=== PATIENT | female | born 1945 | race Caucasian/White ===

== ENCOUNTER 2016-05-13 14:16 | Outpatient (RCR) | payer MEDICARE ==
[~2016-05-13 14:16] MED LIST: ASPI-983 PO; ATOR80TA76 PO; Antivert; CLOP75TA28 PO; CLOP75TA69 PO; IBUP800T26 PO; METO-333 PO; MULT-1029 PO; OMEG-160 PO; PANT40TA3 PO; PED1TAB. PO; PRAV40TA PO; PRAV40TA2 PO; TICA90TA PO
[2016-06-29] MEDS ORDERED: MULT80TA PO (08:24)
[2016-06-30] MEDS ORDERED: SULF1TAB35 PO (08:24)
== END 2016-07-10 | disposition home or self-care (01) ==
LOC: CR 14:16
PROVIDERS: ATTEND Internal Medicine Cardiovascular Disease
DX: Z09 Encounter for follow-up examination after completed treatment for conditions other than malignant neoplasm (principal); I25.2 Old myocardial infarction
CPT/HCPCS: 93798

== ENCOUNTER → 2016-06-06 | Outpatient (CLI) | payer MEDICARE ==
[~2016-06-06] MED LIST changes: +CATHETER FLUSH 10 ML SYR IV PRN; +MULT80TA PO; +SULF1TAB35 PO
[2016-06-06 09:56] VITALS: BP 111/72
[2016-06-06 09:59] VITALS: BP 109/72
[2016-06-06 10:07] VITALS: BP 111/75
--- NOTE | 2016-06-07 09:49 | STRESS TEST ---
PROCEDURE PHYSICIAN: CINDY ROSALES EXERCISE MYOVIEW STRESS TEST REPORT DATE OF PROCEDURE: 06/06/2016 REFERRING PHYSICIAN: Janelle Beauchamp MD INDICATION: Coronary artery disease. Baseline heart rate is 60, baseline blood pressure: 111/71. Baseline EKG: Sinus rhythm with frequent, premature ventricular contractions. SUMMARY: The patient was injected with 10.73 mCi of technetium 99 Myoview and the resting images were obtained. Then she started exercising with a baseline heart rate, blood pressure and EKG mentioned above. At minute 6 and 35 seconds, she was injected with 32.3 mCi of technetium 99 Myoview. Continued to have frequent PVCs, at peak exercise level she exercise for total 7 minutes 35 seconds, achieving maximum heart rate of 140, which is 95% of maximum expected heart rate. With peak exercise level, EKG was showing no acute ischemic changes, no PVCs were noted. Then at 1 minute of recovery she started having PVCs again with a blood pressure at peak 148/73. The resting and stress images were reviewed and compared in the short axis, horizontal long axis, and vertical long axis views. Review of the images showed breast attenuation with decreased uptake at the mid to apical anterolateral wall and inferolateral wall, with mild reversibility. SSS is 8, SDS 4, TID value 0.98. On the gated images, the left ventricle appeared to be normal size with normal contractility. Calculated ejection fraction 60%. CONCLUSION: 1. Fair exercise tolerance, a total 7 minutes 35 seconds on standard Jiagr protocol 10.1 METs achieving 95% of maximum expected heart rate. 2. Frequent PVCs noted throughout the test, improved at the peak stress level then started back at one minute of recovery. 3. Nondiagnostic EKG changes with exercise. Returned to baseline during recovery. 4. Breast attenuation with reversible ischemia involving the mid to apical anterolateral and inferolateral wall. 5. Normal left ventricular size with normal contractility. Calculated ejection fraction 60% Job ID: [id number] Dictated Date: 06/07/2016 08:34:07 Gasateria Attendant Date: 06/07/2016 09:44:06 / rayshawn
== END ==
LOC: CARD 08:35
PROVIDERS: ATTEND Internal Medicine Cardiovascular Disease
DX: I25.10 Atherosclerotic heart disease of native coronary artery without angina pectoris (principal); E78.2 Mixed hyperlipidemia; Z72.0 Tobacco use; Z82.49 Family history of ischemic heart disease and other diseases of the circulatory system
CPT/HCPCS: 78452; 93017

== ENCOUNTER 2016-06-29 07:04 | Day surgery (SDC) | payer MEDICARE ==
[2016-06-29] VITALS (9 sets, daily range): BP systolic 83–143; BP diastolic 51–93
[~2016-06-29] VITALS: Ht 175.3 cm; Wt 77.1 kg
[~2016-06-29 07:04] MED LIST changes: -CATHETER FLUSH 10 ML SYR IV PRN; -MULT80TA PO; -SULF1TAB35 PO
[2016-06-29] MEDS ORDERED: HEParin (CATH LAB) 2,000 ML IV ONE (07:15)
[2016-06-29] MEDS ORDERED: LIDOCAINE 1% INJ 20 ML (XYLOCAINE) VIAL ONE (07:15)
[2016-06-29] MEDS ORDERED: NS IV 1000 ML 1,000 ML ONE (07:15)
[2016-06-29] MEDS ORDERED: NS IV 1000 ML 1,000 ML IV SCH ×2 (07:30→09:28)
[2016-06-29 07:46] LABS: BILIRUBIN,URINE NEGATIVE (NEGATIVE); KETONES,URINE NEGATIVE (NEGATIVE); LEUKOCYTE ESTERASE ,URINE 2+ (NEGATIVE); MEAN PLATELET VOLUME 11.1 FL (7.4-10.4); NITRITE,URINE NEGATIVE (NEGATIVE); PH,URINE 5 (5-9); PROTEIN,URINE 1+ (NEGATIVE); RED BLOOD COUNT 4.89 10^6/uL (4.35-5.85); UROBILINOGEN,URINE NORMAL (NORMAL)
[2016-06-29 07:58] LABS: INR 1.1 (0.8-1.4); PROTHROMBIN TIME PATIENT 13.4 SEC (12.2-14.7)
[2016-06-29 08:02] LABS: SQUAMOUS EPITHELIAL CELL,UR TNTC /HPF
[2016-06-29 08:07] LABS: ALANINE AMINOTRANSFERASE 20 U/L (0-55); ALBUMIN 4.2 G/DL (3.2-4.5); ANION GAP 6 MMOL/L (5-14); ASPARTATE AMINO TRANSFERASE 22 U/L (5-34); BILIRUBIN,TOTAL 0.7 MG/DL (0.1-1.0); BLOOD UREA NITROGEN 20 MG/DL (7-18); BUN/CREATININE RATIO 25; CALCIUM 8.9 MG/DL (8.5-10.1); CARBON DIOXIDE 28 MMOL/L (21-32); CHLORIDE 108 MMOL/L (98-107); CHOLESTEROL 173 MG/DL (< 200); DIRECT LDL 108 MG/DL (1-129); GFR ESTIMATED > 60; GLUCOSE 94 MG/DL (70-105); POTASSIUM 4.1 MMOL/L (3.6-5.0); SODIUM 142 MMOL/L (135-145); TOTAL PROTEIN 6.3 G/DL (6.4-8.2); TRIGLYCERIDES 107 MG/DL (<150); VLDL CHOLESTEROL 21 MG/DL (5-40)
--- NOTE | 2016-06-29 08:08 | Cardiac Procedure Note-CS/ASA ---
Pre-Procedure Note Pre-Op Procedure Note H&P Reviewed The H&P was reviewed, patient examined and no changes noted. Date H&P Reviewed: Jun 29, 2016 Time H&P Reviewed: 08:07 Conscious Sedation Pre-Proced Time Reviewed: 08:07 ASA Class: 3 Airway Mallampati Classification: ([place] appropriate class) I. II. III, IV Lungs Heart ASA score ASA 1: a normal healthy patient ASA 2: a patient with a mild systemic disease (mid diabetes, controlled hypertension, obesity x ASA 3: a patient with a severe systemic disease that limits activity (angina , COPD, prior Myocardial infarction) ASA 4: a patient with an incapacitating disease that is a constant threat to life (CHF, renal failure) ASA 5: a moribund patient not expected to survive 24 hrs. (ruptured aneurysm) ASA 6: a declared brain patient whose organs are being harvested. For emergent operations, add the letter E after the classification Grade 3 Sedation Plan: Analgesia, Amnesia, Plan communicated to team members, Discussed options with patient/fam, Discussed risks with patient/fam Note The patient is an appropriate candidate to undergo the planned procedure, sedation, and anesthesia. The patient immediately re-assessed prior to indication. CINDY ROSALES MD Jun 29, 2016 08:08
--- NOTE | 2016-06-29 08:16 | Diagnostic Imaging Report ---
Portable upright radiograph of the chest. INDICATION: Coronary artery disease. History of smoking. FINDINGS: The lungs are clear. The heart size is normal. No effusion or pneumothorax. The mediastinum and horace appear unremarkable. IMPRESSION: Unremarkable exam. Dictated by: Dictated on workstation # [id number]
[2016-06-29] MEDS ORDERED: MULT80TA PO (08:24)
[2016-06-29] MEDS ORDERED: MIDAZOLAM 5 MG/5 ML (VERSED) VIAL ONE (08:48)
[2016-06-29] MEDS ORDERED: fentaNYL INJECTION 100 MCG/2 ML AMP ONE (08:48)
[2016-06-29] MEDS ORDERED: HEParin 1000 UNIT/ML (10ML VIAL) FOR BOLUS ONE (09:14)
[2016-06-29] MEDS ORDERED: ADENOSINE 3 MG/1 ML (ADENOSCAN) 30ML VIAL IV ONE (09:14)
[2016-06-29] MEDS ORDERED: PATIENT MAY USE OWN MEDS, ALL PO SCH (09:30)
[2016-06-29] MEDS ORDERED: PANTOPRAZOLE 40 MG (PROTONIX) TAB PO SCH (21:00)
[2016-06-29] MEDS ORDERED: ATORVASTATIN 80 MG (LIPITOR) TABLET PO SCH (21:00)
[2016-06-29] MEDS: meTOprolol TARTRATE 25 MG (LOPRESSOR) TABLET PO SCH (21:01)
[2016-06-30] VITALS: BP 117/55
[2016-06-30 04:00] VITALS: BP 120/58
[2016-06-30 04:42] LABS: MEAN PLATELET VOLUME 11.7 FL (7.4-10.4); RED BLOOD COUNT 4.76 10^6/uL (4.35-5.85); RED CELL DISTRIBUTION WIDTH 15.1 % (10.0-14.5)
[2016-06-30 05:04] LABS: ANION GAP 9 MMOL/L (5-14); BLOOD UREA NITROGEN 16 MG/DL (7-18); BUN/CREATININE RATIO 23; CALCIUM 8.7 MG/DL (8.5-10.1); CARBON DIOXIDE 24 MMOL/L (21-32); CHLORIDE 108 MMOL/L (98-107); CREATININE SERUM 0.71 MG/DL (0.60-1.30); GFR ESTIMATED > 60; GLUCOSE 92 MG/DL (70-105); POTASSIUM 3.9 MMOL/L (3.6-5.0); SODIUM 141 MMOL/L (135-145)
[2016-06-30] MEDS ORDERED: MULTIVIT W/MINERALS TAB (THERAGRAN M) PO SCH (07:00)
[2016-06-30 08:00] VITALS: BP 95/54
[2016-06-30] MEDS ORDERED: SULF1TAB35 PO (08:24)
--- NOTE | 2016-06-30 08:24 | Cardiology Progress Note ---
Subjective Subjective/Events-last exam Patient sitting up in bed, no new complaints. Denies any CP or dyspnea. States ready to go home. Objective-Cardiology Exam Last Set of Vital Signs Vital Signs 06/30/16 06/30/16 08:00 09:40 Temp 95.6 Pulse 69 Resp 20 B/P 95/54 Pulse Ox 99 O2 Delivery Room Air Capillary Refill : Less Than 3 Seconds I&O Intake and Output 07/01/16 00:00 Intake Total 200 ml Output Total 400 ml Balance -200 ml Intake Oral 200 ml Output Urine Total 400 ml General: Alert, Oriented X3, Cooperative HEENT: Atraumatic, PERRLA Neck: Supple, No JVD, No Thyromegaly Lungs: Clear to Auscultation, Normal Air Movement Heart: Regular Rate, Normal S1, Normal S2, No Murmurs Abdomen: Normal Bowel Sounds, Soft, No Tenderness, No Hepatosplenomegaly, No Masses Extremities: No Clubbing, No Cyanosis, No Edema, Normal Pulses, No Tenderness/ Swelling Skin: No Rashes, No Breakdown, No Significant Lesion Neuro: Normal Gait, Normal Speech, Strength at 5/5 X4 Ext, Normal Tone, Sensation Intact Psych/Mental Status: Mental Status NL, Mood NL Results Lab A/P-Cardiology Admission Diagnosis CP CAD HLP UTI Assessment/Plan CP, nonspecific etiology, resolved. Continue current medications. Coronary Artery Disease, admitted in November 2015 with acute myocardial infarction , had total occlusion of the proximal circumflex artery, patient was unstable with cardiogenic shock, underwent emergency intervention to the proximal and mid circumflex artery with 2 overlapping stents using Promus per meter 2.512 mm proximal and 2.512 mm at the midportion, the proximal portion was expanded to 2.65 with excellent results. Had severe disease in a small to intermediate size right coronary artery that was treated later with primary stenting using 2.512 mm Promus per meter expanded to 2.5 mm with excellent results. Patient has 50 percent mid LAD stenosis, 50-60 percent mid to distal LAD stenosis. Most recent cardiac catheterization done yesterday revealed patent stents with otherwise nonobstructive disease. Continue current medications. Hyperlipidemia, maintained on Lipitor. History of tobaccoism, has stopped smoking after her myocardial infarction. Strong family history of coronary artery disease Status post cardiogenic shock after her myocardial infarction, improved Nonobstructive carotid artery stenosis-most recent carotid duplex done December 2015. Continue to monitor. Patient is maintained on PPI for reflux. UTI- I will start patient on DS. WILMER EUGENE Jun 30, 2016 08:24
[2016-06-30] MEDS: meTOprolol TARTRATE 25 MG (LOPRESSOR) TABLET PO SCH (08:49)
[2016-06-30] MEDS ORDERED: CLOPIDOGREL 75 MG (PLAVIX) TABLET PO SCH (09:00)
[2016-06-30] MEDS ORDERED: ASPIRIN E.C. 81 MG (ECOTRIN) TAB PO SCH (09:00)
[2016-06-30] MEDS ORDERED: OMEGA 3 (FISH OIL) 1000 MG CAP PO SCH (09:00)
[2016-06-30 09:40] VITALS: BP 95/54
--- NOTE | 2016-06-30 10:54 | DISCHARGE SUMMARY ---
PROCEDURE PHYSICIAN: CINDY ROSALES DATE OF PROCEDURE: 06/29/2016 REFERRING PHYSICIAN: Dr. Janelle Ram BRIEF HISTORY: Mrs. Cano is a 71-year-old lady with a history of coronary artery disease and myocardial infarction in October 2016. She underwent stent placement to the circumflex and right coronary artery had a borderline lesion in the LAD. She had an abnormal stress test, scheduled for left heart catheterization. PROCEDURE NOTE: After explaining the procedure to the patient, all pros and cons were explained. All questions were answered. The patient signed a consent, then she was placed on the cardiac catheterization laboratory. The right groin was prepped in a sterile fashion. Local anesthesia applied to right groin. 6-Slovenian sheath was placed in the right femoral artery. Combination of right and left Ihsan catheter were used to access the right and left coronary system. Multiple views were obtained. Pigtail catheter advanced to the left ventricular cavity. Pressure was measured. Pullback LV to aorta was done. At that point I decided to proceed with FFR to the LAD. The patient had a borderline lesion. The patient was given 5000 units of heparin. FL guide was advanced to the left coronary system. Radi wire was advanced to the LAD and placed distally. Baseline FFR was 0.90. She was started adenosine drip for 2 minutes. Blood pressure became borderline low. FFR at the end of the test was 0.84. At that time Radi wire was removed. Angiogram showed no complications. At that point, the guide was removed. The sheath was removed. Mynx device deployed. Hemostasis achieved. FINDINGS: HEMODYNAMICS: Please see separate sheet for hemodynamics. There is no significant gradient across the aortic valve. ANATOMY: 1. Left main coronary artery is bifurcating to left anterior descending and circumflex artery with no obstructive disease. 2. The left anterior descending artery is moderate in size. 50% stenosis in the mid LAD. FFR after adenosine was 0.84. Nonobstructive disease. 3. Left circumflex artery is moderate in size. Has 2 stents patent in the proximal and mid circumflex system with no obstructive disease. 4. Right coronary artery is moderate in size. Stent is patent in the midright coronary artery with no obstructive disease. 5. Normal left ventricular end-diastolic pressure. No ventriculogram was done. CONCLUSION: 1. 50% stenosis in the mid LAD. FFR is 0.84, nonobstructive disease. 2. Patent stents in the circumflex artery and right coronary artery. 3. Normal left ventricular end-diastolic pressure. DISCUSSION AND RECOMMENDATION: Medical therapy is recommended. No intervention is warranted at this point. FINAL DIAGNOSES: 1. Chest pain, nonspecific etiology. 2. Coronary artery disease. 3. Hypertension. 4. Hyperlipidemia Job ID: [id number] Dictated Date: 06/29/2016 09:34:03 Spinner Iron Date: 06/30/2016 10:52:29/rayshawn
--- NOTE | 2016-06-30 16:29 | Cardiology Progress Note ---
Subjective Subjective/Events-last exam patient was seen and evaluated bedside, SMITA uncomfortably, groin is healing well, denied any chest pain Review of Systems General: No Chills, No Night Sweats, No Fatigue, No Malaise, No Appetite, No Other HEENT: No Head Aches, No Visual Changes, No Eye Pain, No Ear Pain, No Dysphasia , No Sinus Congestion, No Post Nasal Drip, No Sore Throat, No Other Pulmonary: No Dyspnea, No Cough, No Pleuritic Chest Pain, No Other Cardiovascular: No: Chest Pain, Edema, Lt Headedness, Orthopnea, Other, Palpitations, Paroxysmal Noc. Dyspnea Objective-Cardiology Exam Last Set of Vital Signs Vital Signs 06/30/16 06/30/16 08:00 09:40 Temp 95.6 Pulse 69 Resp 20 B/P 95/54 Pulse Ox 99 O2 Delivery Room Air Capillary Refill : Less Than 3 Seconds General: Alert, Oriented X3, Cooperative HEENT: Atraumatic, PERRLA Neck: Supple, No JVD, No Thyromegaly Lungs: Clear to Auscultation, Normal Air Movement Heart: Regular Rate, Normal S1, Normal S2, No Murmurs Abdomen: Normal Bowel Sounds, Soft, No Tenderness, No Hepatosplenomegaly, No Masses Extremities: No Clubbing, No Cyanosis, No Edema, Normal Pulses, No Tenderness/ Swelling Skin: No Rashes, No Breakdown, No Significant Lesion Neuro: Normal Gait, Normal Speech, Strength at 5/5 X4 Ext, Normal Tone, Sensation Intact Psych/Mental Status: Mental Status NL, Mood NL Results Lab Laboratory Tests 06/30/16 04:13 A/P-Cardiology Admission Diagnosis CP CAD HTN Hyperlipidemia Assessment/Plan CP, nonspecific etiology, resolved. Continue current medications. Coronary Artery Disease, admitted in November 2015 with acute myocardial infarction , had total occlusion of the proximal circumflex artery, patient was unstable with cardiogenic shock, underwent emergency intervention to the proximal and mid circumflex artery with 2 overlapping stents using Promus per meter 2.512 mm proximal and 2.512 mm at the midportion, the proximal portion was expanded to 2.65 with excellent results. Had severe disease in a small to intermediate size right coronary artery that was treated later with primary stenting using 2.512 mm Promus per meter expanded to 2.5 mm with excellent results. Patient has 50 percent mid LAD stenosis, 50-60 percent mid to distal LAD stenosis. Most recent cardiac catheterization done yesterday revealed patent stents FFR across the LAD is 0.84. Conservative management, discharge today. Hyperlipidemia, maintained on Lipitor. History of tobaccoism, has stopped smoking after her myocardial infarction. Strong family history of coronary artery disease Status post cardiogenic shock after her myocardial infarction, improved Nonobstructive carotid artery stenosis-most recent carotid duplex done December 2015. Continue to monitor. Patient is maintained on PPI for reflux. UTI- I will start patient on Septra DS. CINDY ROSALES MD Jun 30, 2016 16:28
== END 2016-06-30 09:40 | disposition home or self-care (01) ==
LOC: CATH 07:04 → ICU 10:05 → 4TH 15:57 → CATH 06-30 09:40 → 4TH 06-30 10:22
PROVIDERS: ATTEND Internal Medicine Cardiovascular Disease
DX: R94.39 Abnormal result of other cardiovascular function study (principal); I25.10 Atherosclerotic heart disease of native coronary artery without angina pectoris; I25.2 Old myocardial infarction; R07.89 Other chest pain; E78.2 Mixed hyperlipidemia; I10 Essential (primary) hypertension; Z79.899 Other long term (current) drug therapy; Z87.891 Personal history of nicotine dependence; Z95.5 Presence of coronary angioplasty implant and graft
CPT/HCPCS: 36415; 71010; 80048; 80053; 80061; 81000; 85027; 85347; 85610; 85730; 87081; 93005; 93458; 93571

== ENCOUNTER → 2019-01-16 | Outpatient (CLI) | payer MEDICARE ==
[~2019-01-16] VITALS: Ht 175.3 cm; Wt 77.6 kg
[~2019-01-16] MED LIST changes: +CATHETER FLUSH 10 ML SYR IV PRN; +MULT80TA PO; +SULF1TAB35 PO
--- NOTE | 2019-01-16 16:18 | STRESS TEST ---
DATE OF SERVICE: 01/16/2019 EXERCISE MYOVIEW STRESS TEST REPORT REFERRING PHYSICIAN: Dr. Janelle Beauchamp. Baseline heart rate is 76. Baseline blood pressure 123/92. Baseline EKG is sinus rhythm with frequent PVCs. In summary, the patient was injected with 10.79 mCi of technetium-99 Myoview and the resting images were acquired. Then, the patient started exercising with a baseline heart rate, blood pressure and EKG mentioned above. Frequent PVCs were noted at the beginning of the test persisted throughout the test with ventricular trigeminy. The patient was able to exercise for 7 minutes 30 seconds on standard Jigar protocol. Peak blood pressure was 167/84. EKG was showing no ischemic changes. During recovery, heart rate and blood pressure returned to baseline. The patient continued to have frequent PVCs. The resting and stress images were reviewed and compared in the short axis, horizontal long axis, and vertical long axis views. Review of the images showed diaphragmatic attenuation affecting the quality of the images. There is decreased uptake at the basal to mid inferior wall, inferolateral and anterolateral wall with no significant reversibility. SSS is 10, SDS 2, TID value 10.08. On the gated images, the left ventricle is normal in size with mild hypokinesia, more pronounced at the inferior wall. Calculated ejection fraction 44%. IN CONCLUSION: 1. Fair exercise tolerance, a total of 7 minutes 30 seconds on standard Jigar protocol, total of 9.1 METs achieving 86% of maximum expected heart rate. 2. Frequent premature ventricular contractions and ventricular trigeminy persisted during exercise and during recovery. 3. Diaphragmatic attenuation with mild fixed defect at the basal to mid inferolateral and anterolateral wall with no significant reversibility. 4. Normal left ventricular size with mild diffuse left ventricular hypokinesia, more pronounced at the inferior wall. Calculated ejection fraction 44%. Job ID: [id number] DocumentID: [id number] Dictated Date: 01/16/2019 15:46:52 Senior Gis Analyst Date: 01/16/2019 16:16:55 Dictated By: CINDY ROSALES MD
== END ==
LOC: CARD 09:39
PROVIDERS: ATTEND Physician Assistant
DX: I08.0 Rheumatic disorders of both mitral and aortic valves (principal); I25.10 Atherosclerotic heart disease of native coronary artery without angina pectoris; I65.29 Occlusion and stenosis of unspecified carotid artery; E78.2 Mixed hyperlipidemia; Z82.49 Family history of ischemic heart disease and other diseases of the circulatory system
CPT/HCPCS: 78452; 93017; 93306

== ENCOUNTER → 2020-03-02 | Outpatient (CLI) | payer MEDICARE ==
[~2020-03-02] MED LIST changes: +ASPI-1238 PO; -ASPI-983 PO; -CATHETER FLUSH 10 ML SYR IV PRN; -PANT40TA3 PO; +PANT40TA52 PO
[2020-03-02 12:50] LABS: ALBUMIN 4.1 GM/DL (3.2-4.5); BILIRUBIN,TOTAL 0.7 MG/DL (0.1-1.0); CALCIUM 9.3 MG/DL (8.5-10.1); CREATININE SERUM 0.92 MG/DL (0.60-1.30); POTASSIUM 3.9 MMOL/L (3.6-5.0); TOTAL PROTEIN 6.6 GM/DL (6.4-8.2)
== END ==
LOC: CARD 12:24
PROVIDERS: ATTEND Internal Medicine Cardiovascular Disease
DX: I10 Essential (primary) hypertension (principal); I25.10 Atherosclerotic heart disease of native coronary artery without angina pectoris; I35.0 Nonrheumatic aortic (valve) stenosis; E78.2 Mixed hyperlipidemia; I65.23 Occlusion and stenosis of bilateral carotid arteries; Z82.49 Family history of ischemic heart disease and other diseases of the circulatory system
CPT/HCPCS: 36415; 80053; 80061; 93306

== ENCOUNTER 2021-11-04 15:11 | Emergency (ER) | payer MEDICARE ==
[~2021-11-04] VITALS: Ht 173 cm; Wt 59.0 kg
[~2021-11-04 15:11] MED LIST changes: -SULF1TAB35 PO; +SULF1TAB38 PO
[2021-11-04] MEDS ORDERED: LIDOCAINE 1% INJ 20 ML VIAL IJ STA (15:40)
[2021-11-04] MEDS ORDERED: TETANUS,DIPTH,PERTUSS P/F (BOOSTRIX) 0.5 ML VIAL IM ONE (15:45)
[2021-11-04] MEDS ORDERED: L.E.T. SOLUTION 3 ML SYR TOP ONE (15:45)
--- NOTE | 2021-11-04 16:06 | ED Fall/Injury ---
General Chief Complaint: Trauma-Non Activation Stated Complaint: FELL HIT HEAD Nursing Triage Note: PT TO ED IN WITH SISTER BY POV WITH C/O FALL. PT REPORTS SHE WAS SWEEPING HER FRONT PORCH AND FELL DOWN THE STEPS. PIT HIT HEAD AND UNSURE OF LOC. 2 CM LAC NOTED TO L FOREHEAD, SKIN TEAR TO L FA. PAIN IN L SHOULDER IS THE WORST AT THIS TIME. DENIES DIZZINESS, LIGHTHEADEDNESS, HERNÁNDEZ AT THIS TIME. Source: patient Exam Limitations: no limitations History of Present Illness Date Seen by Provider: Nov 04, 2021 Time Seen by Provider: 15:34 Initial Comments Here with sister who brought her in after fall at home. Apparently she was sweeping her porch when she fell down concrete steps. She did hit her head and believes that there was loss of consciousness. She does have a laceration to the left side of the forehead as well as skin tear to left arm. She is complaining of pain to the left upper arm as well as the left upper chest. She was nauseated after the event but that is improved now. Unknown last tetanus. Denies pain in her hips or legs and denies other injury. She does live alone but her grandson is staying with her through Monday and her sister lives right across the street. Her daughter lives in [place]. Occurred: just prior to arrival (Approximately 1 hour ago) Severity: moderate Injuries/Pain Location: head, neck, upper extremity, chest Context: lost balance Loss of Consciousness: unsure Modifying Factors: Improves With Immobilization; Worse With Movement Associated Symptoms (Fall): No Abdominal Pain; Chest Pain, Confusion, Headache, Nausea/Vomiting, Neck Pain; No Shortness of Air, No Slurred Speech, No Trouble Walking Allergies and Home Medications Allergies Coded Allergies: Penicillins (Unverified Allergy, Intermediate, RASH, 12/07/15) acetaminophen (Verified Allergy, Unknown, 12/05/15) codeine (Verified Allergy, Unknown, 12/05/15) hydrocodone (Verified Allergy, Unknown, 12/05/15) Patient Home Medication List Home Medication List Reviewed: Yes Aspirin (Aspirin EC) 81 Mg Tablet.dr, 81 MG PO DAILY, (Reported) Entered as Reported by: RICHELLE BRYAN on 02/15/16 1410 Atorvastatin Calcium (Atorvastatin Calcium) 80 Mg Tablet, 80 MG PO HS, (Reported) Entered as Reported by: RICHELLE BRYAN on 02/15/16 140 Clopidogrel Bisulfate (Clopidogrel) 75 Mg Tablet, 75 MG PO DAILY, (Reported) Entered as Reported by: RICHELLE BRYAN on 02/15/16 140 Metoprolol Tartrate (Metoprolol Tartrate) 25 Mg Tablet, 12.5 MG PO BID, (Reported) Entered as Reported by: RICHELLE BRYAN on 02/15/16 140 Multivit-Minerals/Folic Acid (Centrum Multigummies) 80 Mcg Tab.chew, 160 MCG PO DAILY, (Reported) Entered as Reported by: LOBITO WILSON on 06/29/16 0824 [place]-3/Dha/Epa/Fish Oil (Fish Oil 1,000 mg Softgel) 1 Each Capsule, 1,000 MG PO DAILY, (Reported) Entered as Reported by: RICHELLE BRYAN on 02/15/16 1410 Pantoprazole Sodium (Pantoprazole Sodium) 40 Mg Tablet.dr, 40 MG PO HS, (Reported) Entered as Reported by: RICHELLE BRYAN on 02/15/16 1402 Sulfamethoxazole/Trimethoprim (Bactrim Ds Tablet) 1 Each Tablet, 1 EACH PO BID Prescribed by: WILMER KIRBY on 06/30/16 0824 Review of Systems Review of Systems Constitutional: see HPI; No chills, No fever Eyes: Denies Pain, Denies Vision Changes Ears, Nose, Mouth, Throat: denies ear pain, denies nose pain, denies nose discharge, denies epistaxis Respiratory: No cough, No short of breath Cardiovascular: chest pain (Left upper chest wall); No palpitations Gastrointestinal: No abdominal pain; nausea; No vomiting Genitourinary: no symptoms reported Musculoskeletal: No back pain; joint pain, muscle pain, neck pain Skin: change in color, lesions (Skin tears left forearm and laceration left forehead) Psychiatric/Neurological: Headache; Denies Weakness All Other Systems Reviewed Negative Unless Noted: Yes Past Hsqspvz-Dxqxcg-Qeasmk Hx Patient Social History Tobacco Use?: No Use of E-Cig and/or Vaping dev: No Substance use?: No Immunizations Up To Date Tetanus Booster (TDap): Unknown Seasonal Allergies Seasonal Allergies: No Past Medical History Surgeries: Yes Cardiac, Coronary Stent, Tonsillectomy Respiratory: No Cardiac: Yes Coronary Artery Disease, Heart Attack, High Cholesterol Neurological: Yes Dementia, Headaches /Migraines 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 0.0oz. 77.221913yg; 19.00 BMI Method:Stated General Appearance: WD/WN, no apparent distress HEENT: PERRL/EOMI, pharynx normal, other (2 cm laceration left forehead lateral aspect above the episcopalian) Neck: non-tender, full range of motion, supple Cardiovascular: regular rate, rhythm, no murmur Respiratory: lungs clear, normal breath sounds, other (Tenderness to the area of the left upper chest lateral near axilla) Gastrointestinal: non tender, soft Back: normal inspection, no CVA tenderness, no vertebral tenderness Extremities: pelvis stable, other (Tenderness to area of left upper arm proximal humerus area) Neurologic/Psychiatric: alert, oriented x 3 Skin: warm/dry, other (Skin tear multiple abrasions to left forearm) Xavier Coma Score Best Eye Response: (4) Open Spontaneously Best Verbal Response: (5) Oriented Best Motor Response: (6) Obeys Commands Procedures/Interventions Wound Location: Scalp Other Wound Location Left upper forehead Wound Length (cm): 2 Wound's Depth, Shape: irregular, contused tissue Wound Explored: contaminated Irrigated w/ Saline (ccs): 100 Betadine Prep?: Yes Anesthesia: 1% Lidocaine Volume Anesthetic (ccs): 3 Wound Debrided: minimal Suture: Ethlion Suture Size: 5-0 Number of Sutures: 4 Layer Closure?: 1 Number Deep Layer Sutures: 0 Sterile Dressing Applied?: Yes Progress Anesthetized topically with LET. Wound then cleaned and local infiltration of 1% lidocaine. Cleaned with saline flush. Wound closed with simple interrupted sutures. Cover with antibiotic ointment and dressing. Tolerated procedure well with no complications. Closure done by DB Kent. Post closure wound evaluated by me and noted excellent approximation. Progress/Results/Core Measures Results/Orders My Orders Orders - FERNANDEZ TINEO MD Ct Chest Wo (6/9/22 15:40) Ct Head/Cervical Spine Wo (11/04/21 15:40) Humerus, Left, 2 Views (11/04/21 15:40) Dipht,Pertuss(Acell),Tet Adult (Boostrix (11/04/21 15:45) Let Solution (Let Solution) (11/04/21 15:45) Lidocaine 1% Inj 20 Ml (Xylocaine 1% Inj (11/04/21 15:40) Medications Given in ED Current Medications Medications Dose Ordered Sig/Emily Route Start Time Stop Time Status Last Admin Dose Admin Diphtheria/ Tetanus/Acell Pertussis 0.5 ml ONCE ONCE IM 11/04/21 15:45 11/04/21 15:46 DC 11/04/21 16:18 0.5 ML Tetracaine/ Epinephrine/ Lidocaine 3 ml ONCE ONCE TOP 11/04/21 15:45 11/04/21 15:46 DC 11/04/21 16:43 3 ML Vital Signs/I&O 11/04/21 15:20 Temp 36.5 Pulse 58 Resp 14 B/P (MAP) 145/72 (96) Pulse Ox 99 O2 Delivery Room Air Blood Pressure Mean: 96 Progress Progress Note : Progress Note Seen and evaluated. CT head, neck and chest ordered. X-ray left humerus ordered. We will apply LET to wound on the forehead. Nursing to clean and cover skin tear to left forearm. She has declined pain medicine. Tetanus to be updated. Monitor patient. 1625: Wound cleaning ongoing. We will close wound to forehead. Nursing to dress wounds to forearm. Sling applied to left arm due to proximal humerus fracture at tip. See x-ray results for details. Findings discussed with patient and family. Discharged home with return precautions. Patient and family verbalized understanding instructions and agreement with plan. Grandson will stay with the patient tonight. Diagnostic Imaging Diagonstic Imaging: Xray Plain Films/CT/US/NM/MRI: other Comments [facility] [place], [place] NAME: RHONA CLARK [facility] REC#: [id number] PT STATUS: REG ER : 1945 PHYSICIAN: FERNANDEZ TINEO MD ADMIT DATE: 11/04/21/ER Signed Date of Exam:11/04/21 HUMERUS, LEFT, 2 VIEWS INDICATION: Status post fall with left humeral pain. AP and lateral views of the left humerus are obtained. There is no prior study for comparison. FINDINGS: There appears to be a nondisplaced fracture of the posterolateral portion of the humeral head. Mid and distal humeral shaft are intact. The glenohumeral joint and AC joint appear in good alignment. IMPRESSION: Nondisplaced fracture of the posterolateral portion of the humeral head. No other abnormalities. Dictated by: Dictated on workstation # [id number] Dict: 11/04/21 1606 Trans: 11/04/21 1618 [id number] Interpreted by: MAGALI ARNOLD MD Electronically signed by: MAGALI ARNOLD MD 11/04/21 1618 Diagonstic Imaging: CT Plain Films/CT/US/NM/MRI: c-spine, head Comments [facility] [place], [place] NAME: RHONA CLARK [facility] REC#: [id number] PT STATUS: REG ER : 1945 PHYSICIAN: FERNANDEZ TINEO MD ADMIT DATE: 11/04/21/ER Draft Date of Exam:11/04/21 CT HEAD/CERVICAL SPINE WO EXAMINATION: CT head and CT cervical spine without contrast. TECHNIQUE: Multiple contiguous axial images were obtained through the brain and cervical spine without the use of intravenous contrast. Sagittal and coronal reformations through the cervical spine were then performed. All CT scans use one or more of the following dose optimizing techniques: Automated exposure control, MA and/or KvP adjustment based on patient size and exam type or iterative reconstruction. HISTORY: Head and neck pain after injury. COMPARISON: 02/15/2016. FINDINGS: HEAD: Mild diffuse cerebral volume loss with proportional enlargement of the ventricles and sulci. Mild hypodensities throughout the supratentorial white matter of both cerebral hemispheres. No acute intracranial hemorrhage or abnormal extra-axial fluid collections are present. No hyperdense vessel. The calvarium is intact. The mastoid air cells are clear. The visualized paranasal sinuses are clear. Orbits are normal. Left frontal scalp soft tissue injury. C-SPINE: There is straightening of the normal cervical lordosis. Vertebral body heights are maintained. No acute fracture, dislocation, or destructive osseous process. There is multilevel facet hypertrophy without perched facets. There is multilevel cervical spondylosis. The paraspinous soft tissues are normal. The visualized thyroid gland is normal. The visualized lung apices are normal. IMPRESSION: 1. No acute intracranial abnormality. Chronic microangiopathy and volume loss. 2. Degenerative changes of the cervical spine without acute osseous abnormality. 3. Left frontal scalp soft tissue injury without underlying calvarial fracture. Dictated on workstation # [id number] Dict: 11/04/21 1555 Trans: 11/04/21 1605 [id number] Interpreted by: AGUSTÍN COHEN DO Electronically signed by: Maurinsmartha Imaging: CT Plain Films/CT/US/NM/MRI: chest Comments [facility], [place] NAME: RHONA CLARK [facility] REC#: [id number] PT STATUS: REG ER : 1945 PHYSICIAN: FERNANDEZ TINEO MD ADMIT DATE: 11/04/21/ER Draft Date of Exam:11/04/21 CT CHEST WO EXAMINATION: CT chest without contrast. TECHNIQUE: Multiple contiguous axial images were obtained through the chest without the use of intravenous contrast. All CT scans use one or more of the following dose optimizing techniques: Automated exposure control, MA and/or KvP adjustment based on patient size and exam type or iterative reconstruction. HISTORY: Chest pain after fall. COMPARISON: None available. FINDINGS: Thyroid: The thyroid is normal. Mediastinum: Heart size is normal without significant pericardial effusion. Calcifications of the aorta and coronary vessels. Thoracic aorta is normal in caliber. No suspicious lymphadenopathy. Lungs and airways: The lungs are clear without consolidation, pleural effusion, or pneumothorax. The airways are normal. Upper abdomen: The subphrenic structures are normal. Musculoskeletal: No acute fracture is seen. IMPRESSION: 1. No acute abnormality in the chest. No acute fracture. Dictated on workstation # [id number] Dict: 11/04/21 1603 Trans: 11/04/21 1611 [id number] Interpreted by: NOEL,AGUSTÍN C DO Electronically signed by: Departure Impression Primary Impression: Closed head injury Qualified Codes: S09.90XA - Unspecified injury of head, initial encounter Additional Impressions: Laceration of forehead without complication Qualified Codes: S01.81XA - Laceration without foreign body of other part of head, initial encounter Skin tear of left forearm without complication Qualified Codes: S51.812A - Laceration without foreign body of left forearm, initial encounter Multiple abrasions Closed fracture of left proximal humerus Qualified Codes: S42.295A - Other nondisplaced fracture of upper end of left humerus, initial encounter for closed fracture Disposition: HOME, SELF-CARE Condition: Stable Departure-Patient Inst. Decision time for Depature: 16:28 Referrals: ADENIKE COPPOLA MD, NICHOLE M MD (PCP) Primary Care Physician OLGA CHAVEZ MD, MICHAEL P MD Patient Instructions: Laceration Repair With Stitches (DC), Skin Abrasions (DC), Concussion, Adult (DC), Upper Arm Fracture Add. Discharge Instructions: All discharge instructions reviewed with patient and/or family. Voiced understanding. Sutures out in 5 to 7 days. You may return to the emergency department for suture removal. Use antibiotic ointment and dressing over wound to forehead. You may also replace dressing as needed to left forearm by covering with antibiotic ointment and dressing. Return for worse pain, vomiting, weakness, vision or balance problems, breathing problems or other concerns as needed. Use sling until directed otherwise by orthopedic physician. Call and make appointment with one of the orthopedic physicians listed or of your choosing for recheck and further evaluation of small fracture of area on left shoulder. You may use Tylenol/acetaminophen 1000 mg every 6-8 hours as needed for pain. FERNANDEZ TINEO MD Nov 04, 2021 16:06
--- NOTE | 2021-11-04 16:10 | Diagnostic Imaging Report ---
INDICATION: Status post fall with left humeral pain. AP and lateral views of the left humerus are obtained. There is no prior study for comparison. FINDINGS: There appears to be a nondisplaced fracture of the posterolateral portion of the humeral head. Mid and distal humeral shaft are intact. The glenohumeral joint and AC joint appear in good alignment. IMPRESSION: Nondisplaced fracture of the posterolateral portion of the humeral head. No other abnormalities. Dictated by: Dictated on workstation # [id number]
--- NOTE | 2021-11-04 16:11 | Diagnostic Imaging Report ---
EXAMINATION: CT chest without contrast. TECHNIQUE: Multiple contiguous axial images were obtained through the chest without the use of intravenous contrast. All CT scans use one or more of the following dose optimizing techniques: Automated exposure control, MA and/or KvP adjustment based on patient size and exam type or iterative reconstruction. HISTORY: Chest pain after fall. COMPARISON: None available. FINDINGS: Thyroid: The thyroid is normal. Mediastinum: Heart size is normal without significant pericardial effusion. Calcifications of the aorta and coronary vessels. Thoracic aorta is normal in caliber. No suspicious lymphadenopathy. Lungs and airways: The lungs are clear without consolidation, pleural effusion, or pneumothorax. The airways are normal. Upper abdomen: The subphrenic structures are normal. Musculoskeletal: No acute fracture is seen. IMPRESSION: 1. No acute abnormality in the chest. No acute fracture. Dictated by: Dictated on workstation # [id number]
[2021-11-04 17:11] VITALS: BP 146/59
== END 2021-11-04 17:08 | disposition home or self-care (01) ==
LOC: EDUNIT# 15:11 → ER 15:14
DX: S42.295A Other nondisplaced fracture of upper end of left humerus, initial encounter for closed fracture (principal); S09.90XA Unspecified injury of head, initial encounter; S01.01XA Laceration without foreign body of scalp, initial encounter; S51.812A Laceration without foreign body of left forearm, initial encounter; R07.89 Other chest pain; Z23 Encounter for immunization; W10.8XXA Fall (on) (from) other stairs and steps, initial encounter; Y92.008 Other place in unspecified non-institutional (private) residence as the place of occurrence of the external cause
CPT/HCPCS: 12011; 70450; 71250; 72125; 73060; 99283; A4565; 90715

== ENCOUNTER → 2021-11-10 | Emergency (ER) | payer MEDICARE ==
[~2021-11-10] VITALS: Ht 172 cm; Wt 58.9 kg
[2021-11-10 10:53] VITALS: BP 146/85
== END ==
LOC: EDUNIT# 10:45 → ER 10:46
DX: Z48.02 Encounter for removal of sutures (principal)

== ENCOUNTER → 2022-05-24 | Outpatient (CLI) | payer MEDICARE ==
[~2022-05-24] MED LIST changes: +CLOP-31 PO; -CLOP75TA69 PO
== END ==
LOC: CARD 10:39
PROVIDERS: ATTEND Internal Medicine Cardiovascular Disease
DX: I11.9 Hypertensive heart disease without heart failure (principal); I35.2 Nonrheumatic aortic (valve) stenosis with insufficiency
CPT/HCPCS: 93306

== ENCOUNTER 2023-01-22 13:56 | Emergency (ER) | payer MEDICARE ==
--- NOTE | 2023-01-22 14:18 | ED Lower Extremity ---
General Chief Complaint: Lower Extremity Stated Complaint: SWELLING/BRUISING LEFT ANKLE Nursing Triage Note: PT TO RM 6 BY WC WITH C/O L ANKLE SWELLING. PTS FAMILY IS UNAWARE OF INJURY. PT [facility] IN [place] Source: patient, family Exam Limitations: no limitations History of Present Illness Date Seen by Provider: Jan 22, 2023 Time Seen by Provider: 14:13 Initial Comments Patient is a 77-year-old female who presents ED with family for evaluation of left ankle swelling. Patient with a history of dementia. She is currently at the [facility] in [place]. Staff there noted that patient was having difficulty bearing weight on her left ankle. Patient family states patient does ambulate but does shuffle. She is able to transfer to a wheelchair. Patient is denying of any pain. Staff there did not note of any specific injury. Patient cannot recall a specific injury. Family was concerned for swelling and bruising to the left ankle. Denies of any bruising or swelling elsewhere. They did give her Tylenol. Neurovascular intact. Allergies and Home Medications Allergies Coded Allergies: Penicillins (Unverified Allergy, Intermediate, RASH, 12/07/15) acetaminophen (Verified Allergy, Unknown, 12/05/15) codeine (Verified Allergy, Unknown, 12/05/15) hydrocodone (Verified Allergy, Unknown, 12/05/15) Patient Home Medication List Home Medication List Reviewed: Yes Aspirin (Aspirin EC) 81 Mg Tablet.dr, 81 MG PO DAILY, (Reported) Entered as Reported by: RICHELLE BRYAN on 02/15/16 1410 Atorvastatin Calcium (Atorvastatin Calcium) 80 Mg Tablet, 80 MG PO HS, (Reported) Entered as Reported by: RICHELLE BRYAN on 02/15/16 1402 Clopidogrel Bisulfate (Clopidogrel) 75 Mg Tablet, 75 MG PO DAILY, (Reported) Entered as Reported by: RICHELLE BRYAN on 02/15/16 1402 Metoprolol Tartrate (Metoprolol Tartrate) 25 Mg Tablet, 12.5 MG PO BID, (Reported) Entered as Reported by: RICHELLE BRYAN on 02/15/16 1402 Multivit-Minerals/Folic Acid (Centrum Multigummies) 80 Mcg Tab.chew, 160 MCG PO DAILY, (Reported) Entered as Reported by: LOBITO WISLON on 06/29/16 0824 [place]-3/Dha/Epa/Fish Oil (Fish Oil 1,000 mg Softgel) 1 Each Capsule, 1,000 MG PO DAILY, (Reported) Entered as Reported by: RICHELLE BRYAN on 02/15/16 1410 Pantoprazole Sodium (Pantoprazole Sodium) 40 Mg Tablet.dr, 40 MG PO HS, (Reported) Entered as Reported by: RICHELLE BRYAN on 02/15/16 1402 Sulfamethoxazole/Trimethoprim (Bactrim Ds Tablet) 1 Each Tablet, 1 EACH PO BID Prescribed by: WILMER KIRBY on 06/30/16 0824 Review of Systems Constitutional: No chills, No diaphoresis EENTM: No ear pain, No blurred vision, No double vision Respiratory: No cough, No dyspnea on exertion, No hemoptysis, No short of breath Cardiovascular: No chest pain Gastrointestinal: No abdominal pain, No diarrhea, No nausea, No vomiting Genitourinary: No decreased output, No discharge, No dysuria Musculoskeletal: No back pain; joint pain, joint swelling Skin: No change in color, No change in hair/nails All Other Systems Reviewed Negative Unless Noted: Yes Past Ajvtwdq-Wgkzvv-Hockna Hx Immunizations Up To Date Tetanus Booster (TDap): Unknown First/Initial COVID19 Vaccinat: 2020 Second COVID19 Vaccination Santosh: 2020 Third COVID19 Vaccination Date: 2020 Seasonal Allergies Seasonal Allergies: No Past Medical History Surgeries: Yes Cardiac, Coronary Stent, Tonsillectomy Respiratory: No Cardiac: Yes Coronary Artery Disease, Heart Attack, High Cholesterol Neurological: Yes Dementia, Headaches /Migraines 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 0.0oz. 77.036608ru; 19.00 BMI Method:Estimated General Appearance: WD/WN, no apparent distress HEENT: PERRL/EOMI, normal ENT inspection, TMs normal, pharynx normal Neck: non-tender, full range of motion, supple, normal inspection Cardiovascular: regular rate, rhythm, no edema, no gallop, no JVD Respiratory: chest non-tender, lungs clear, normal breath sounds, no respiratory distress, no accessory muscle use Gastrointestinal: normal bowel sounds, soft Back: normal inspection, no CVA tenderness, no vertebral tenderness Knees: bilateral knee non-tender, bilateral knee normal inspection, bilateral knee normal range of motion Ankles: left ankle swelling (Left lateral ankle swelling. No significant bruising. Normal active range of motion. Neurovascular intact. 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, no motor/sensory deficits, alert, normal mood/affect, oriented x 3 Skin: normal color, warm/dry Procedures/Interventions Suture Size: 5-0 Progress/Results/Core Measures Results/Orders Lab Results Laboratory Tests Test 01/22/23 14:22 01/22/23 14:30 Range/Units Glucometer 133 H 70-110 MG/DL Urine Color YELLOW Urine Clarity CLEAR Urine pH 5.5 5-9 Urine Specific [place] 1.015 L 1.016-1.022 Urine Protein NEGATIVE NEGATIVE Urine Glucose (UA) NEGATIVE NEGATIVE Urine Ketones NEGATIVE NEGATIVE Urine Nitrite NEGATIVE NEGATIVE Urine Bilirubin NEGATIVE NEGATIVE Urine Urobilinogen 2.0 < = 1.0 MG/DL Urine Leukocyte Esterase NEGATIVE NEGATIVE Urine RBC (Auto) TRACE H NEGATIVE Urine RBC 0-2 /HPF Urine WBC RARE /HPF Urine Squamous Epithelial Cells NONE /HPF Urine Crystals NONE /LPF Urine Bacteria NEGATIVE /HPF Urine Casts NONE /LPF Urine Mucus NEGATIVE /LPF Urine Culture Indicated NO My Orders Orders - MARCIA LIU Ankle, Left, 3 Views (01/22/23 14:12) Accucheck Stat ONCE (01/22/23 14:20) Ua Culture If Indicated (01/22/23 14:20) Vital Signs/I&O 01/22/23 14:08 Temp 35.7 Pulse 72 Resp 14 B/P (MAP) 140/71 (94) Pulse Ox 97 O2 Delivery Room Air Blood Pressure Mean: 94 Departure Communication (PCP) Patient with a history of dementia. Presents ED family from [place]. Left ankle swelling. On exam very minimal swelling without bruising or redness. No calf pain. No specific injury. X-ray was obtained which did not note any acute fracture. After talking with daughter she has had urine incontinence over the past week or so. She had a negative urinalysis of around a week ago. Discussed with family could be secondary to UTI versus her stage in her dementia. Did obtain a straight cath urinalysis which was negative for infection. Blood sugar was 133 no history of diabetes. Discussed all results with family. Recommend ice, Tylenol, Po wrap for support. Recommend assistance with ambulation for the next 1 to 2 weeks. Orthopedic outpatient follow-up in 7 to 10 days if pain progress. She denies of any falls. There was no evidence of trauma. Recommend follow-up your PCP in 2 to 3 days for reevaluation. Patient is able to stand and bear weight and transfer over to a wheelchair. Patient does not appear to be in distress. Impression Primary Impression: Sprain of left ankle Disposition: 01 HOME, SELF-CARE Condition: Stable Departure-Patient Inst. Decision time for Depature: 14:17 Referrals: ADENIKE COPPOLA MD, NICHOLE M MD (PCP) Primary Care Physician Patient Instructions: Ankle Sprain ED Add. Discharge Instructions: Recommend continue with Tylenol. Recommend assistance. If continued pain may consider follow-up with orthopedic in 1 to 2 weeks. All discharge instructions reviewed with patient and/or family. Voiced understanding. MARCIA LIU Jan 22, 2023 14:18
--- NOTE | 2023-01-22 14:31 | Diagnostic Imaging Report ---
EXAM: ANKLE, LEFT, 3 VIEWS INDICATION: Left ankle pain. COMPARISON: None. FINDINGS: No fracture or malalignment. Soft tissue shadows are unremarkable. IMPRESSION: No acute radiographic findings in the left ankle. Dictated by: Dictated on workstation # [id number]
[2023-01-22 14:55] LABS: CLARITY,URINE CLEAR; COLOR,URINE YELLOW; PH,URINE 5.5 (5-9)
[2023-01-22 14:57] LABS: GLUCOSE, URINE (UA) NEGATIVE (NEGATIVE); PROTEIN,URINE NEGATIVE (NEGATIVE)
[2023-01-22 14:59] LABS: BACTERIA,URINE NEGATIVE /HPF; BILIRUBIN,URINE NEGATIVE (NEGATIVE); KETONES,URINE NEGATIVE (NEGATIVE); LEUKOCYTE ESTERASE ,URINE NEGATIVE (NEGATIVE); NITRITE,URINE NEGATIVE (NEGATIVE); RBC,URINE 0-2 /HPF; WBC,URINE RARE /HPF
[2023-01-22 15:07] VITALS: BP 140/71
== END 2023-01-22 15:07 | disposition home or self-care (01) ==
LOC: EDUNIT# 13:56 → ER 14:00
DX: S93.402A Sprain of unspecified ligament of left ankle, initial encounter (principal); X58.XXXA Exposure to other specified factors, initial encounter
CPT/HCPCS: 51702; 73610; 81000; 82947